=== PATIENT | male | born 1945 | race Caucasian/White ===

== ENCOUNTER 2016-08-22 09:49 | Outpatient (CLI) | payer OTHER, MEDICARE ==
[2016-08-22] MEDS ORDERED: IOPAMIDOL-300 50 ML VIAL PO ONE (11:09)
[2016-08-22] MEDS ORDERED: IOPAMIDOL-300 100 ML VIAL IVP ONE (11:09)
--- NOTE | 2016-08-22 12:04 | CT Report ---
CT OF THE ABDOMEN AND PELVIS WITH CONTRAST: 08/22/2016 CLINICAL INDICATION: Unspecified abdominal pain. COMPARISON: 06/01/2015. TECHNIQUE: Axial CT images of the abdomen and pelvis were obtained with 100 mL of Isovue-300 intraven ously as well as oral contrast. FINDINGS: Limited evaluation of the lung bases is unremarkable. ABDOMEN: The liver, spleen, pancreas, kidneys and adrenal glands are unremarkable. The gallbladder is not dilated. No bowel dilatation, free gas, or free fluid is present. No abdominal adenopathy is see n. PELVIS: The appendix is seen in the right lower quadrant, and is normal in caliber. No pelvic adenopa thy or free fluid is present. The osseous structures demonstrate degenerative changes. IMPRESSION: NORMAL CT OF THE ABDOMEN AND PELVIS WITH CONTRAST. NO SIGNIFICANT INTERVAL CHANGE. NO EV IDENT ETIOLOGY FOR PATIENT'S ABDOMINAL PAIN. In accordance with CT protocol optimization, one or more of the following dose reduction techniques w ere utilized for this exam: automated exposure control, adjustment of mA and/or KV based on patient size, or use of iterative reconstructive technique. JOB #: [id number] EXT JOB #:[id number]
== END 2016-08-22 09:50 | disposition home or self-care (01) ==
LOC: DI 09:49
PROVIDERS: ATTEND Hospitalist
DX: R10.9 Unspecified abdominal pain (principal)
CPT/HCPCS: 74177; Q9967

== ENCOUNTER 2020-04-01 14:07 | Outpatient (CLI) | payer MEDICARE ==
--- NOTE | 2020-04-01 14:30 | XRAY Report ---
PROCEDURE: Chest 2 View X-Ray INDICATIONS: EXERTIONAL DYSPNEA TECHNIQUE: 2 view(s) of the chest. COMPARISON: None. FINDINGS: Surgical changes and devices: None. Lungs and pleura: No pleural effusions or pneumothorax. Lungs are clear. Mediastinum: Mediastinal contours are normal. Heart size is normal. Bones and chest wall: No suspicious bony abnormalities. Soft tissues appear unremarkable. IMPRESSION: No acute process. Reviewed by: Ivania Lanier MD on 04/01/2020 2:28 PM [facility] Approved by: Ivania Lanier MD on 04/01/2020 2:28 PM [facility] Station ID: [id number]
== END 2020-04-01 14:08 | disposition home or self-care (01) ==
LOC: DI 14:07
PROVIDERS: ATTEND Family Medicine
DX: R06.09 Other forms of dyspnea (principal)

== ENCOUNTER 2020-06-03 10:32 | Outpatient (CLI) | payer MEDICARE ==
[2020-06-03] MEDS ORDERED: IOVERSOL 320 100 ML VIAL IVP ONE ×2 (10:46→12:12)
--- NOTE | 2020-06-03 13:11 | CT Report ---
PROCEDURE: IVP INDICATIONS: GROSS HEMATURIA CONTRAST: IV CONTRAST: Optiray 320 ml: 140 PO CONTRAST: *NO PO CONTRAST TECHNIQUE: After the administration of intravenous contrast, 5 mm thick sections acquired from the diaphragms to the symphysis. 5 mm thick coronal and sagittal reformats were acquired. For radiation dose reducti on, the following was used: automated exposure control, adjustment of mA and/or kV according to aimee ent size. COMPARISON: CT abdomen/pelvis 08/30/2016. FINDINGS: Image quality: Excellent. Lung bases: Lung bases are clear. Heart size is normal. Urinary system: Both kidneys are normal in size and enhancement. Contrast-filled renal calyces are normal in morphology. Contrast filled portions of both ureters are normal in caliber. Irregular serp iginous focus of soft tissue density is seen in the right posterior bladder adjacent to the right ure terovesicular junction (image 77 of series 8), which could represent intraluminal thrombus in the set ting of hematuria, although a urothelial lesion is not excluded. Bladder wall is mildly thickened and trabeculated. The prostate is enlarged and impinges upon the base of the bladder. Solid organs: Liver and spleen are normal in size and enhancement. Gallbladder there is normal. Bi liary system is non dilated. Pancreas enhances normally. No adrenal nodules. Peritoneum and bowel: Bowel loops demonstrate normal wall thickness and caliber. Normal appendix. N o free fluid or air. Nodes and vessels: No retroperitoneal or mesenteric adenopathy by size criteria. Aorta and inferior vena cava are normal in size. Moderate atherosclerotic calcifications are seen in the aorta. Abdominal wall: No ventral hernias. Pelvis: No pathologic free pelvic fluid. Probable fat-containing inguinal hernias are seen bilateral ly. Bones: No suspicious bony lesions. No vertebral body compression fractures. Multilevel degenerativ e changes are seen in the spine with prominent facet hypertrophy and the lower lumbar spine. There is grade 1 anterolisthesis of L4 on L5. IMPRESSION: 1. Irregular serpiginous filling defect in the right posterior bladder adjacent to the right uretero vesicular junction could represent intraluminal thrombus in the setting of hematuria. A urothelial ne oplasm is not excluded, and correlation with cystoscopy could be considered. 2. No renal or ureteral calculus or hydronephrosis. 3. Prostatomegaly with a prominent median lobe that impinges upon the bladder base. The bladder wall is diffusely mildly thickened and trabeculated. Reviewed by: Tonny Brannon MD on 06/03/2020 12:09 PM [facility] Approved by: Tonny Brannon MD on 06/03/2020 12:09 PM [facility] Station ID: [id number]
== END 2020-06-03 10:33 | disposition home or self-care (01) ==
LOC: DI 10:32
PROVIDERS: ATTEND Urology
DX: R31.0 Gross hematuria (principal); N32.89 Other specified disorders of bladder; N40.0 Benign prostatic hyperplasia without lower urinary tract symptoms
CPT/HCPCS: 74178; Q9967

== ENCOUNTER 2020-08-06 08:42 | Outpatient (CLI) | payer MEDICARE ==
--- NOTE | 2020-08-06 15:24 | Nuclear Medicine Report ---
PROCEDURE: Bone Whole Body INDICATIONS: PROSTATE CANCER RADIOPHARMACEUTICAL: 27.1 mCi Tc-99m MDP IV. TECHNIQUE: Delayed whole-body scintigrams were obtained approximately 3-4 hours after intravenous injection of r adiotracer. Anterior and posterior views were acquired from vertex to feet. Additional left and rig ht lateral views of the skull and cervical spine were obtained. COMPARISON: None available. FINDINGS: There is no suspicious focus of increased radio pharmaceutical uptake to indicate blastic osseous metastatic disease. There is degenerative uptake in the bilateral acromioclavicular and gleno humeral joints, sternoclavicular joints, and in the cervical spine posterior elements. There is also degenerative uptake within the posterior elements of the lumbar spine and in the knees. Faint degener ative uptake is also present in the ankles, right greater than left. IMPRESSION: No scintigraphic evidence of metastatic disease. Reviewed by: Wes Montoya MD on 08/06/2020 3:23 PM PDT Approved by: Wes Montoya MD on 08/06/2020 3:23 PM PDT Station ID: [id number]
== END 2020-08-06 08:43 | disposition home or self-care (01) ==
LOC: DI 08:42
PROVIDERS: ATTEND Urology
DX: C61 Malignant neoplasm of prostate (principal)
CPT/HCPCS: 78306

== ENCOUNTER 2020-10-13 11:12 | Outpatient (CLI) | payer MEDICARE ==
[2020-10-13 11:29] LABS: BILIRUBIN,URINE NEGATIVE (NEGATIVE); GLUCOSE, URINE (UA) NEGATIVE (NEGATIVE); KETONES,URINE (UA) NEGATIVE (NEGATIVE); LEUKOCYTE ESTERASE, URINE TRACE (NEGATIVE); NITRITE,URINE NEGATIVE (NEGATIVE); OCCULT BLOOD,URINE TRACE-INTA (NEGATIVE); PROTEIN,URINE TRACE mg/dL (NEGATIVE); UROBILINOGEN,URINE 0.2 (NORMAL) E.U./dL (NORMAL)
[2020-10-13 11:30] LABS: CLARITY,URINE CLEAR (CLEAR)
[2020-10-13 11:43] LABS: BACTERIA,URINE Few /HPF (None Seen); MUCUS,URINE Few Strands; RBC,URINE 0-5 /HPF (0-5); SQUAMOUS EPITHELIAL CELL,UR NONE SEEN (<= Few)
== END 2020-10-13 11:13 | disposition home or self-care (01) ==
LOC: LAB 11:12
PROVIDERS: ATTEND Urology
DX: R39.9 Unspecified symptoms and signs involving the genitourinary system (principal)
CPT/HCPCS: 81001; 87086

== ENCOUNTER 2021-02-18 13:31 | Outpatient (CLI) | payer MEDICARE ==
[2021-02-18] MEDS ORDERED: IOPAMIDOL-300 100 ML VIAL ONE (14:51)
[2021-02-18] MEDS ORDERED: IOPAMIDOL-300 100 ML VIAL IVP ONE (18:15)
--- NOTE | 2021-02-18 21:21 | CT Report ---
PROCEDURE: IVP INDICATIONS: BLADDER PAIN CONTRAST: IV CONTRAST: Isovue 300 ml: 140 PO CONTRAST: *NO PO CONTRAST TECHNIQUE: After the administration of oral and intravenous contrast, 5 mm thick sections acquired from the diap hragms to the symphysis. 5 mm thick coronal and sagittal reformats were acquired. For radiation dos e reduction, the following was used: automated exposure control, adjustment of mA and/or kV accordin g to patient size. COMPARISON: CT IVP 06/03/2020. FINDINGS: Image quality: Excellent. Lung bases: There is mild dependent atelectasis. Heart size is normal. There is a small hiatal hernia . Urinary system: Kidneys demonstrate no renal stones, hydronephrosis, or perinephric stranding. Contr ast-filled renal calyces demonstrate areas of contrast extension peripheral to the papilla bilaterall y suggestive of papillary necrosis. Contrast filled portions of both ureters are normal in caliber. T here is concentric bladder wall thickening and trabeculation suggestive of chronic bladder outlet obs truction. There is also associated perivesicular fat stranding suggestive of a cystitis. The prostate is enlarged. There is been interval placement of fiducial markers within the prostate with 2 new hyp oattenuating areas consistent with necrosis. Solid organs: Evaluation of the liver demonstrates no focal hepatic lesions. Gallbladder appears with in normal limits without calcified gallstones. Biliary system is non dilated. The spleen is normal i n size. Pancreas enhances normally without peripancreatic fat stranding or fluid collections. No adr enal nodules. Peritoneum and bowel: Bowel loops demonstrate normal wall thickness and caliber. No free fluid or a ir. Nodes and vessels: No retroperitoneal or mesenteric adenopathy by size criteria. Aorta and inferior vena cava are normal in size. Abdominal wall: No ventral hernias. Pelvis: No pathologic free pelvic fluid. No inguinal hernias or adenopathy. Bones: No suspicious bony lesions. No vertebral body compression fractures. IMPRESSION: 1. Concentric bladder wall thickening and trabeculation consistent sequelae of chronic bladder outlet obstruction. However, there is also associated perivesicular fat stranding suggestive of a cystitis. Recommend correlation with urinalysis. 2. New fiducial markers within the prostate with associated 2 new hypoattenuating regions compatible with necrosis and likely reflecting posttreatment changes. 3. Mild extension of contrast peripheral to the papilla in the kidneys suggestive of papillary necros is. Reviewed by: Keshawn Cordova MD on 02/18/2021 8:20 PM [facility] Approved by: Keshawn Cordova MD on 02/18/2021 8:20 PM [facility] Station ID: [id number]
== END 2021-02-18 13:32 | disposition home or self-care (01) ==
LOC: LAB 13:31
PROVIDERS: ATTEND Urology
DX: R39.89 Other symptoms and signs involving the genitourinary system (principal); R93.41 Abnormal radiologic findings on diagnostic imaging of renal pelvis, ureter, or bladder; R93.422 Abnormal radiologic findings on diagnostic imaging of left kidney; R93.421 Abnormal radiologic findings on diagnostic imaging of right kidney
CPT/HCPCS: 36415; 74178; 82565; 84520; Q9967

== ENCOUNTER 2021-03-16 14:23 | Outpatient (CLI) | payer MEDICARE ==
[2021-03-16 14:53] LABS: BASOPHILS % (AUTO) 0.2 %; EOSINOPHILS # (AUTO) 0.1 10^3/uL (0.0-0.7); EOSINOPHILS % (AUTO) 2.1 %; HCT - HEMATOCRIT 41.2 % (42.0-52.0); HGB - HEMOGLOBIN 13.6 g/dL (14.0-18.0); LYMPHOCYTES # (AUTO) 0.3 10^3/uL (1.5-3.5); LYMPHOCYTES % (AUTO) 5.6 %; MEAN CORPUSCULAR HEMOGLOBIN 32.6 pg (27.0-31.0); MEAN CORPUSCULAR VOLUME 98.8 fL (80.0-94.0); MEAN PLATELET VOLUME 10.7 fL (7.4-11.4); MONOCYTES # (AUTO) 0.7 10^3/uL (0.0-1.0); MONOCYTES % (AUTO) 11.9 %; NEUTROPHILS # (AUTO) 4.6 10^3/uL (1.5-6.6); NEUTROPHILS % (AUTO) 79.9 %; PLT - PLATELET COUNT 146 10^3/uL (130-450); RED BLOOD COUNT 4.17 10^6/uL (4.70-6.10); RED CELL DISTRIBUTION WIDTH 13.7 % (12.0-15.0); WHITE BLOOD COUNT 5.7 x10^3/uL (4.8-10.8)
[2021-03-16 15:03] LABS: ALBUMIN 4.2 g/dL (3.2-5.5); ALBUMIN/GLOBULIN RATIO 1.2 (1.0-2.2); BILIRUBIN,TOTAL 0.9 mg/dL (0.2-1.0); CALCIUM 9.9 mg/dL (8.5-10.3); POTASSIUM 4.6 mmol/L (3.5-5.0); TOTAL PROTEIN 7.6 g/dL (6.7-8.2)
[2021-03-16 15:18] LABS: THYROID STIMULATING HORMONE 1.49 uIU/mL (0.34-5.60)
== END 2021-03-16 14:24 | disposition home or self-care (01) ==
LOC: LAB 14:23
PROVIDERS: ATTEND Family Medicine
DX: C67.5 Malignant neoplasm of bladder neck (principal); C61 Malignant neoplasm of prostate; R63.4 Abnormal weight loss
CPT/HCPCS: 36415; 80053; 84443; 85025